=== PATIENT | male | born 1945 | race Hispanic/Latino ===

== ENCOUNTER 2016-12-05 14:56 | Inpatient (IN) | payer MEDICARE ==
[2016-12-05 14:56] VITALS: BMI 24.3
[2016-12-05] MEDS ORDERED: Sodium Chloride 0.9% 1,000 ML IV STA (15:27)
[2016-12-05] MEDS ORDERED: Iohexol 240 (50 ml) PO ONE (15:37)
--- NOTE | 2016-12-05 15:43 | ED PDOC ---
HPI: Abdomen Chief Complaint (Provider): abdominal pain History Per: Patient, Family ( at bedside) Onset/Duration Of Symptoms: Hrs (3-4) Outside of [place] travel?: No Current Symptoms Are (Timing): Still Present Pain Scale Rating Of: 7 Location Of Pain/Discomfort: Epigastric Quality Of Discomfort: "Pain" Associated Symptoms: Vomiting. denies: Fever, Chills, Diarrhea, Back Pain, Chest Pain, Urinary Symptoms Exacerbating Factors: None Alleviating Factors: None Last Bowel Movement: Yesterday (PM, before bed) <Mary Mccollum - Last Filed: 12/05/16 19:05> <Rey Toth III - Last Filed: 12/05/16 19:19> Time Seen by Provider: 12/05/16 15:00 Chief Complaint (Nursing): Abdominal Pain Additional Complaint(s): Rey Zamora is a 71 yo M with PMH HTN, AAA, HLD, gout, s/p lap alicia earlier this month (11/08/16 at [place]), who presented to the ED today, because of 3-4 hrs of epigastric abdominal pain/discomfort. Pt ate breakfast consisting of eggs, a slice of andrew and toast, not a new meal for him since the surgery earlier this month, and started experiencing increased belching, nausea and abdominal discomfort within the hour. He vomited once at home and once right after arriving to the ED by ambulance: vomit was not bloody , was food particles. At present time, pt is complaining of epigastric abdominal pain, rates it 7/10, states it doesn't radiate, has no alleviating/ exacerbating factors, and is unable to characterize the pain other than as "pain." As per his who is at bedside, he is currently followed/being worked up for the AAA by a private provider, Dr. Phyllis Mota. PMD: Dr. Bryant Mota (Mary Mccollum) Past Medical History - Medical History PMH: CVA, HTN, Hypercholesterolemia, Hyperlipidemia, Malignancy (bladder cancer , currently being treated), Seizures Denies: Diabetes, Chronic Kidney Disease - Surgical History Surgical History: Appendectomy, Cholecystectomy - Family History Family History: States: Unknown Family Hx (noncontributory) - Living Arrangements Living Arrangements: With Family - Social History Ex-Smoker (has not smoked in the last 12 months): Yes (smoked 2ppd, quit 15 yrs ago) Drugs: Denies <Mary Mccollum - Last Filed: 12/05/16 19:05> <Rey Toth III - Last Filed: 12/05/16 19:19> Vital Signs: Last Vital Signs Temp 98.1 F 12/05/16 14:57 Pulse 82 12/05/16 14:57 Resp 18 12/05/16 14:57 BP 168/97 H 12/05/16 14:57 Pulse Ox 98 12/05/16 19:05 - Home Medications Home Medications: Ambulatory Orders Medication Instructions Recorded Allopurinol [Zyloprim] 100 mg PO DAILY 01/09/15 Aspirin [Aspirin EC] 81 mg PO DAILY 01/09/15 Folic Acid 400 mcg PO DAILY 01/17/16 Simvastatin 10 mg PO DAILY 01/17/16 amLODIPine [Norvasc] 5 mg PO DAILY 01/17/16 levETIRAcetam [Keppra] 500 mg PO BID #0 tab 01/19/16 Levetiracetam [Keppra] 750 mg PO BID #30 tab 01/21/16 - Allergies Allergies/Adverse Reactions: Allergies Allergy/AdvReac Type Severity Reaction Status Date / Time No Known Allergies Allergy Verified 05/05/15 15:26 Review of Systems ROS Statement: Except As Marked, All Systems Reviewed And Found Negative Gastrointestinal: Positive for: Vomiting, Abdominal Pain <Mary Mccollum - Last Filed: 12/05/16 19:05> Physical Exam - Physical Exam Appears: Positive for: No Acute Distress Head Exam: Positive for: ATRAUMATIC Skin: Positive for: Warm, Dry. Negative for: Rash Eye Exam: Positive for: Normal appearance, EOMI, PERRL. Negative for: Conjunctival injection, Scleral icterus ENT: Negative for: Pharyngeal Erythema, Tonsillar Exudate Neck: Negative for: Painless ROM Cardiovascular/Chest: Positive for: Regular Rate, Rhythm, Murmur Respiratory: Positive for: Normal Breath Sounds. Negative for: Respiratory Distress Gastrointestinal/Abdominal: Positive for: Bowel Sounds (sparse), Soft, Tenderness (epigastric, some RUQ). Negative for: Distended, Guarding Extremity: Negative for: Tenderness, Pedal Edema, Deformity Neurologic/Psych: Positive for: Alert, Oriented <JoehaseebChe alvaresa - Last Filed: 12/05/16 19:05> <Rey Toth III - Last Filed: 12/05/16 19:19> - Physical Exam Comments: pt hard of hearing (ChunMary) - Laboratory Results Result Diagrams: 12/05/16 15:40 12/05/16 14:54 - ECG O2 Sat by Pulse Oximetry: 98 <JoehaseebgiorgioMary - Last Filed: 12/05/16 19:05> - Laboratory Results Result Diagrams: 12/05/16 15:40 12/05/16 14:54 <Rey Toth III - Last Filed: 12/05/16 19:19> Medical Decision Making <Mary Mccollum - Last Filed: 12/05/16 19:05> <Rey Toth III - Last Filed: 12/05/16 19:19> Medical Decision Makin:30 Pt seen, examined, evaluated. Initial plan: -CBC -PT/PTT -CMP -Lipase -EKG -Abd/pelvis, PO and IV contrast -Morphine 2mg -Zofran 4mg -NS 1L Bolus 17:00 -cbc unremarkable -cmp: lipase 2390. mild evelation LFTs: AST 103, ALT 91, elevated alk phos at 214 -LR 1L -CT pending 18:[address] 19:00 report pending Case discussed with Dr. Toth (Mary Mccollum) Attending note- seen and examined w resident. Labs reviewed. +elev lipase s/p cholecystectomy. LR initiated. Pain control continued. Endorse Dr Simon pending CT imaging and admission vs transfer to [place] where surgery took place. PMD not at [facility]. (Rey Toth III) Disposition - Disposition Disposition Time: 19:03 <JoeMary hinds - Last Filed: 12/05/16 19:05> - Patient ED Disposition Is Patient to be Admitted: Transfer of Care Counseled Patient/Family Regarding: Studies Performed, Diagnosis - Disposition Patient Signed Over To: Beto Simon Handoff Comments: pending CT result, admission vs transfer. <Rey Toth III - Last Filed: 12/05/16 19:19> - Clinical Impression Clinical Impression: Abdominal pain, Pancreatitis - Disposition Condition: STABLE Forms: Construct (Kyrgyz)
[2016-12-05] MEDS ORDERED: Iohexol 240 (50 ml) ONE (15:53)
[2016-12-05 16:12] LABS: BASO % 0.2 % (0.0-2.0); EOS % 0.3 % (0.0-4.0); HEMATOCRIT 40.5 % (35.0-51.0); LYMPH # 1.2 K/uL (1.0-4.3); LYMPH % 21.3 % (20.0-40.0); MEAN CELL VOLUME 88.5 fl (80.0-94.0); MEAN CORPUSCULAR HGB CONC 32.8 g/dL (33.0-37.0); MEAN PLATELET VOLUME 7.4 fl (7.2-11.7); MONO # 0.5 K/uL (0.0-0.8); MONO % 8.3 % (0.0-10.0); NEUT # 3.9 K/uL (1.8-7.0); NEUT % 69.9 % (50.0-75.0); NRBC % 0.1 % (0.0-0.0); RED CELL DISTRIBUTION WIDTH 18.1 % (11.5-14.5); WHITE BLOOD COUNT 5.6 K/uL (4.8-10.8)
[2016-12-05 16:38] LABS: BILIRUBIN,TOTAL 0.6 mg/dl (0.2-1.3); CALCIUM 8.8 mg/dL (8.4-10.2); POTASSIUM 3.7 MMOL/L (3.6-5.0); TOTAL PROTEIN 5.9 G/DL (6.3-8.2)
[2016-12-05] MEDS ORDERED: Lactated Ringer's 1,000 ML IV SCH ×3 (17:15→22:00)
[2016-12-05 17:42] LABS: PARTIAL THROMBOPLASTIN TIME 28.5 Seconds (25.6-37.1)
[2016-12-05] MEDS ORDERED: Iodixanol 320 MG/ML 100 ML BOTTLE IV ONE (18:51)
[2016-12-05] MEDS ORDERED: Sodium Chloride 0.9% 50 ML IV ONE (18:51)
--- NOTE | 2016-12-05 19:35 | ED PDOC ---
- Laboratory Results Result Diagrams: 12/05/16 15:40 12/05/16 14:54 <Caprice Weaver - Last Filed: 12/05/16 22:07> - Laboratory Results Result Diagrams: 12/05/16 15:40 12/05/16 14:54 - ECG O2 Sat by Pulse Oximetry: 98 - Critical Care Total Time (In Min): 60 <Beto Simon - Last Filed: 12/06/16 01:20> Medical Decision Making <Caprice Weaver - Last Filed: 12/05/16 22:07> <Beto Simon - Last Filed: 12/06/16 01:20> Medical Decision Makin:00 Patient transferred over to [place] by Dr. Toth pending CT and reevaluation. 20:45 CT Scan A/P with IV Contrast FINDINGS: LIMITATIONS: Mild to moderate streak/motion artifact. LOWER THORAX: Large, eccentric aneurysm of the descending thoracic aorta. This measures up to 7 x 7 cm in size. It contains a large amount of mural thrombus. Best seen on image 17 of series 3, there is a focal, crescent shaped hyperdense area in the mural thrombus anteriorly. There is no evidence of adjacent hemorrhage/moses aneurysm rupture. Very small left pleural effusion. ABDOMEN: LIVER: Fatty infiltration of the liver. Small low density liver lesion, most likely a cyst. GALLBLADDER AND BILE DUCTS: Patient is reportedly post laparoscopic cholecystectomy on 11/21/2016. There is fluid in the cholecystectomy bed, with no evidence of a walled off fluid collection to suggest an abscess or a hematoma. No evidence of significant biliary ductal dilatation. PANCREAS: No CT evidence of acute pancreatitis. SPLEEN: No acute abnormality of the spleen identified. ADRENALS: No acute abnormality of the adrenal glands identified. KIDNEYS AND URETERS: No acute abnormality of the kidneys identified. No evidence of significant hydrouereteronephrosis. STOMACH AND BOWEL: Patient appears to be post ileocecal resection. There is an enterocolic anastomosis in the right lower quadrant. APPENDIX: Appendix is surgically absent PELVIS: BLADDER: No acute abnormality of the bladder identified. REPRODUCTIVE: No acute abnormality of the reproductive organs is seen. ABDOMEN and PELVIS: INTRAPERITONEAL SPACE: Moderate amount of abdominal free fluid. This does not appear dense to suggest hemorrhage. BONES/JOINTS: No acute fractures or other acute bony abnormality noted. SOFT TISSUES: No acute abnormality of the visualized soft tissues is seen. VASCULATURE: Complex infrarenal abdominal aortic aneurysm. This measures up to 6 cm in diameter. It has 2 eccentric components, extending posteriorly. It demonstrates extensive mural thrombus. There are hyperdense areas in the mural thrombus anteriorly, which connect to the enhancing aortic lumen. There is no evidence of aneurysm rupture/periaortic hemorrhage. LYMPH NODES: No evidence of diffuse lymphadenopathy. IMPRESSION: - Large 7 cm aneurysm of the descending thoracic aorta. Large 6 cm aneurysm of the infrarenal abdominal aorta. There are hyperdense areas in the mural thrombus of these aneurysms, findings which can be a sign of impending rupture , i.e., representing intramural hemorrhage (versus mural thrombus calcification) . There is no evidence of rupture/periaortic hemorrhage at this time, however. If prior CTs are available, comparison would be helpful. - Moderate abdominal and pelvic free fluid. - Fluid in the cholecystectomy bed, without evidence of abscess formation. Given the abdominal and pelvic free fluid, a leak at the cystic duct stump is not excluded. - See above for remaining findings. 21:[address] Mota about 20 minutes ago regarding patient, call was just returned and it is Dr. Rodney who is covering for Dr. Mota. Dr. Rodney states that she recalls the patient having a thoracic aneurysm in the past, and will review EMR to see if thoracic aneurysm is new or not. 21:19 Dr. Rodney provided results of a CT Angio Chest Abdomen and Pelvis from 10/29/16 , which at that time showed that the patient had a descending thoracic aortic aneurysm with mural thrombosis and ulcerations, whose measurements were 5.6 x 6.3 cm. Patient also had an infrarenal abdominal aortic aneurysm that measured 6.2 cm. Patient does not meet surgical criterion due to his recent cholecystectomy and recent pancreatitis. Patient will be admitted medically to ICU. Case was discussed with Dr. Mcmahon to admit patient, and Dr. Pugh, to admit patient to ICU. Clinical Impression: Pancreatitis/Aortic Aneurysm 21:[address] Yarbrough, recommended that patient receive a HIDA scan. Scribe Attestation: Documented by Dee Dee Graham, acting as a scribe for Beto Simon MD. Provider Scribe Attestation: All medical record entries made by the Scribe were at my direction and personally dictated by me. I have reviewed the chart and agree that the record accurately reflects my personal performance of the history, physical exam, medical decision making, and the department course for this patient. I have also personally directed, reviewed, and agree with the discharge instructions and disposition. (Beto Simon) Disposition <Caprice Weaver - Last Filed: 12/05/16 22:07> Discussed With DrRobby: Timoteo Mcmahon (and Dr. Pugh) - POA Present On Arrival: None - Disposition Disposition: Admitted as In-Patient Disposition Time: 21:19 <Beto Simon - Last Filed: 12/06/16 01:20> - Clinical Impression Clinical Impression: Pancreatitis, Aortic aneurysm - Disposition Condition: GUARDED
--- NOTE | 2016-12-05 20:08 | CT ---
EXAM: CT Abdomen and Pelvis With Intravenous Contrast EXAM DATE/TIME: 12/05/2016 3:37 PM CLINICAL HISTORY: 71 years old, male; Pain; Abdominal pain; Localized; Upper; Prior surgery; Surgery date: <1 month; Surgery type: Lap alicia 11-08-2016; Patient HX: Aaa; Additional info: Upper abd pain, vomiting, HX cholecystectomy 11/21 TECHNIQUE: Axial computed tomography images of the abdomen and pelvis with intravenous contrast. All CT scans at this facility use one or more dose reduction techniques, viz.: automated exposure control; ma/kV adjustment per patient size (including targeted exams where dose is matched to indication; i.e. head); or iterative reconstruction technique. Coronal and sagittal reformatted images were created and reviewed. CONTRAST: 90 mL of VISIPAQUE 320 administered intravenously. COMPARISON: No relevant prior studies available. FINDINGS: LIMITATIONS: Mild to moderate streak/motion artifact. LOWER THORAX: Large, eccentric aneurysm of the descending thoracic aorta. This measures up to 7 x 7 cm in size. It contains a large amount of mural thrombus. Best seen on image 17 of series 3, there is a focal, crescent shaped hyperdense area in the mural thrombus anteriorly. There is no evidence of adjacent hemorrhage/moses aneurysm rupture. Very small left pleural effusion. ABDOMEN: LIVER: Fatty infiltration of the liver. Small low density liver lesion, most likely a cyst. GALLBLADDER AND BILE DUCTS: Patient is reportedly post laparoscopic cholecystectomy on 11/21/2016. There is fluid in the cholecystectomy bed, with no evidence of a walled off fluid collection to suggest an abscess or a hematoma. No evidence of significant biliary ductal dilatation. PANCREAS: No CT evidence of acute pancreatitis. SPLEEN: No acute abnormality of the spleen identified. ADRENALS: No acute abnormality of the adrenal glands identified. KIDNEYS AND URETERS: No acute abnormality of the kidneys identified. No evidence of significant hydrouereteronephrosis. STOMACH AND BOWEL: Patient appears to be post ileocecal resection. There is an enterocolic anastomosis in the right lower quadrant. APPENDIX: Appendix is surgically absent PELVIS: BLADDER: No acute abnormality of the bladder identified. REPRODUCTIVE: No acute abnormality of the reproductive organs is seen. ABDOMEN and PELVIS: INTRAPERITONEAL SPACE: Moderate amount of abdominal free fluid. This does not appear dense to suggest hemorrhage. BONES/JOINTS: No acute fractures or other acute bony abnormality noted. SOFT TISSUES: No acute abnormality of the visualized soft tissues is seen. VASCULATURE: Complex infrarenal abdominal aortic aneurysm. This measures up to 6 cm in diameter. It has 2 eccentric components, extending posteriorly. It demonstrates extensive mural thrombus. There are hyperdense areas in the mural thrombus anteriorly, which connect to the enhancing aortic lumen. There is no evidence of aneurysm rupture/periaortic hemorrhage. LYMPH NODES: No evidence of diffuse lymphadenopathy. IMPRESSION: - Large 7 cm aneurysm of the descending thoracic aorta. Large 6 cm aneurysm of the infrarenal abdominal aorta. There are hyperdense areas in the mural thrombus of these aneurysms, findings which can be a sign of impending rupture, i.e., representing intramural hemorrhage (versus mural thrombus calcification). There is no evidence of rupture/periaortic hemorrhage at this time, however. If prior CTs are available, comparison would be helpful. - Moderate abdominal and pelvic free fluid. - Fluid in the cholecystectomy bed, without evidence of abscess formation. Given the abdominal and pelvic free fluid, a leak at the cystic duct stump is not excluded. - See above for remaining findings.
--- NOTE | 2016-12-05 22:31 | CP.PCM.CON ---
History of Present Illness - History of Present Illness History of Present Illness: CC/Reason for ICU: Pancreatitis, 2 large abd aneurysms HPI: This is a 71 y/o male with MHx significant for HTN, HLD, AAA (2), and gout who comes in with abd pain and nausea. Of note patient had his GB removed 11/08. He was at home and weak but otherwise improving. Today he had breakfast, then around noon he developed pain in the abdomen as well as nausea and recurrent belching. EMS was called and as patient was being transported to hospital, he had an episode of nb/nb vomiting. Currently patient has no abd pain after receiving pain medications. As for when he had the pain, nothing made it better or worse. It did not radiate anywhere. No f/c. ROS: 14 systems reviewed, negative other than HPI MHx: HTN, HLD, AAA, and gout SHx: cholecystectomy Allergies: NKDA Medications: As per med rec, but patient not taking Keppra or any other anti seizure medications Family Hx: Reviewed, no significant findings Social Hx: Lives with family, no tobacco, no EtOH currently Surrogate Dec Mkr: , contact info in chart Past Patient History - Infectious Disease Hx of Infectious Diseases: None - Past Medical History & Family History Past Medical History?: Yes - Past Social History Drugs: Denies - CARDIAC Hx Hypercholesterolemia: Yes Hx Hypertension: Yes - PULMONARY Hx Respiratory Disorders: No - NEUROLOGICAL Hx Seizures: Yes - HEENT Hx HEENT Problems: Yes (hard of hearing) - RENAL Hx Chronic Kidney Disease: No - ENDOCRINE/METABOLIC Hx Endocrine Disorders: No - HEMATOLOGICAL/ONCOLOGICAL Hx Blood Disorders: No - INTEGUMENTARY Hx Dermatological Problems: No - MUSCULOSKELETAL/RHEUMATOLOGICAL Hx Musculoskeletal Disorders: Yes Hx Falls: Yes Hx Gout: Yes - GASTROINTESTINAL Hx Gastrointestinal Disorders: No - GENITOURINARY/GYNECOLOGICAL Hx Genitourinary Disorders: No - PSYCHIATRIC Hx Psychophysiologic Disorder: No Hx Substance Use: No - SURGICAL HISTORY Hx Appendectomy: Yes Hx Cholecystectomy: Yes - ANESTHESIA Hx Anesthesia: Yes Hx Anesthesia Reactions: No Hx Malignant Hyperthermia: No Meds Allergies/Adverse Reactions: Allergies Allergy/AdvReac Type Severity Reaction Status Date / Time No Known Allergies Allergy Verified 05/05/15 15:26 - Medications Medications: Current Medications Allopurinol (Zyloprim) 100 mg PO DAILY [facility] Amlodipine Besylate (Norvasc) 5 mg PO DAILY [facility] Aspirin (Ecotrin) 81 mg PO DAILY [facility] Folic Acid (Folic Acid) 1 mg PO DAILY [facility] Lactated Ringer's (Lactated Ringer's) 1,000 mls @ 1,000 mls/hr IV .Q1H [facility] Lactated Ringer's (Lactated Ringer's) 1,000 mls @ 150 mls/hr IV .Q6H40M [facility] Last Admin: 12/05/16 19:29 Dose: 150 mls/hr Lactated Ringer's (Lactated Ringer's) 1,000 mls @ 100 mls/hr IV .Q10H [facility] Stop: 12/06/16 17:59 Levetiracetam (Keppra) 500 mg PO BID [facility] Morphine Sulfate (Morphine) 1 mg IVP Q4 PRN PRN Reason: Pain, Mild (1-3) Morphine Sulfate (Morphine) 2 mg IVP Q4 PRN PRN Reason: Pain, moderate (4-7) Ondansetron HCl (Zofran Inj) 4 mg IVP Q6 PRN PRN Reason: Nausea/Vomiting Pravastatin Sodium (Pravachol) 20 mg PO DAILY [facility] Physical Exam - Constitutional Appears: No Acute Distress - Head Exam Head Exam: ATRAUMATIC, NORMOCEPHALIC - Eye Exam Eye Exam: EOMI, PERRL - ENT Exam ENT Exam: Mucous Membranes Moist - Neck Exam Neck exam: Positive for: Full Rom - Respiratory Exam Respiratory Exam: Clear to Auscultation Bilateral, NORMAL BREATHING PATTERN - Cardiovascular Exam Cardiovascular Exam: REGULAR RHYTHM, +S1, +S2 - GI/Abdominal Exam GI & Abdominal Exam: Normal Bowel Sounds, Pulsatile Mass, Soft - Extremities Exam Extremities exam: Positive for: full ROM, normal inspection - Neurological Exam Neurological exam: Alert, CN II-XII Intact, Oriented x3 - Psychiatric Exam Psychiatric exam: Normal Affect, Normal Mood - Skin Skin Exam: Dry, Warm Results - Vital Signs Recent Vital Signs: Last Vital Signs Temp 98.7 F 12/05/16 22:03 Pulse 90 12/05/16 22:03 Resp 17 12/05/16 22:03 BP 138/80 12/05/16 22:03 Pulse Ox 98 12/05/16 22:16 - Labs Result Diagrams: 12/05/16 15:40 12/05/16 14:54 - Imaging and Cardiology CT scan - abdomen Status: Image reviewed by me (Pancreas w/o signs of pancreatitis; 7 cm thoracic an, 6 cm infrarenal an), Report reviewed by me Assessment & Plan (1) Pancreatitis Assessment and Plan: 71 y/o male with multiple medical conditions who in with pancreatitis in setting of recent gb removal. Also with 2 large Aortic Aneurysms for which he is being watched closely. -NPO, IVF -Pain mgmt per scale, Zofran for nausea IV -Repeat lipase in AM -GI consult in AM -Possibly HIDA scan in AM -Continue home BP, HLD medications -DVT PPx with SCDs for now Status: Acute (2) Aortic aneurysm Status: Acute (3) Dyslipidemia Status: Chronic Priority: High (4) Gout Status: Chronic (5) HTN (hypertension) Status: Acute (6) DVT prophylaxis Status: Acute
[2016-12-06 06:58] LABS: HEMATOCRIT 45.4 % (35.0-51.0); MEAN CELL VOLUME 88.3 fl (80.0-94.0); MEAN CORPUSCULAR HGB CONC 32.8 g/dL (33.0-37.0); RED CELL DISTRIBUTION WIDTH 18.5 % (11.5-14.5); WHITE BLOOD COUNT 11.7 K/uL (4.8-10.8)
[2016-12-06 07:14] LABS: BLOOD UREA NITROGEN 19 mg/dl (9-20); CALCIUM 8.5 mg/dL (8.4-10.2); CARBON DIOXIDE 18 mmol/L (22-30); CHLORIDE 106 mmol/L (98-107); GFR AFRICAN-AMERICAN > 60; GLUCOSE,RANDOM 103 mg/dL (75-110); LIPASE 669 U/L (23-300); SODIUM 135 mmol/l (132-148)
--- NOTE | 2016-12-06 07:36 | CP.PCM.HP ---
<Omega Medina - Last Filed: 12/06/16 12:01> History of Present Illness - History of Present Illness History of Present Illness: Patient seen and examined bedside with attending. 71 year old male with significant PMH of HTN, HLD, AAA x 2. TAA x 1, and gout who comes in with abdominal pain, nausea and vomiting, admitted for acute pancreatitis. He is s/p laproscopic cholecystectomy 11/08/2016 at [place]. Patient had abdominal pain yesterday with associated nausea and emesis, nbnb. Pain is midepigastric, and controlled with current medications. He has a vascular surgeon over in [place]. Surgery was scheduled to repair AAA in November 20 after cholecystectomy but was pushed back to December due to weakness , as per pts . She endorses history of heavy smoking 2 packs per day for many years. Patient was a heavy drinker in the past as well. His current medications were reviewed with his who has them bedside. ROS: A 12pt ROS was obtained and was negative except as above PMH: as above Surgical hx: s/p lap cholecystectomy 11/08/2016 at [facility], appendectomy about 9 years back Social Hx: as per patients , former smoker, 2 PPD for many years, heavy alcohol drinker with scotch, for many years last drink was months ago Present on Admission - Present on Admission Any Indicators Present on Admission: No Past Patient History - Infectious Disease Hx of Infectious Diseases: None - Past Medical History & Family History Past Medical History?: Yes - Past Social History Smoking Status: Former Smoker - CARDIAC Hx Hypercholesterolemia: Yes Hx Hypertension: Yes - PULMONARY Hx Respiratory Disorders: No - NEUROLOGICAL Hx Seizures: Yes - HEENT Hx HEENT Problems: Yes (hard of hearing) - RENAL Hx Chronic Kidney Disease: No - ENDOCRINE/METABOLIC Hx Endocrine Disorders: No - HEMATOLOGICAL/ONCOLOGICAL Hx Blood Disorders: No Hx AIDS: No Hx Human Immunodeficiency Virus (HIV): No - INTEGUMENTARY Hx Dermatological Problems: No - MUSCULOSKELETAL/RHEUMATOLOGICAL Hx Musculoskeletal Disorders: Yes Hx Falls: No Hx Gout: Yes - GASTROINTESTINAL Hx Gastrointestinal Disorders: No - GENITOURINARY/GYNECOLOGICAL Hx Genitourinary Disorders: No - PSYCHIATRIC Hx Psychophysiologic Disorder: No Hx Substance Use: No - SURGICAL HISTORY Hx Appendectomy: Yes Hx Cholecystectomy: Yes - ANESTHESIA Hx Anesthesia: Yes Hx Anesthesia Reactions: No Hx Malignant Hyperthermia: No Meds Allergies/Adverse Reactions: Allergies Allergy/AdvReac Type Severity Reaction Status Date / Time No Known Allergies Allergy Verified 05/05/15 15:26 Physical Exam - Constitutional Additional comments: lying in bed, no distress noted - Head Exam Head Exam: NORMAL INSPECTION - Eye Exam Eye Exam: Normal appearance - ENT Exam ENT Exam: Mucous Membranes Dry - Respiratory Exam Respiratory Exam: Decreased Breath Sounds, NORMAL BREATHING PATTERN. absent: Rhonchi, Wheezes - Cardiovascular Exam Cardiovascular Exam: Tachycardia (HR 90s, sinus rhythm), REGULAR RHYTHM, +S1, + S2 - GI/Abdominal Exam GI & Abdominal Exam: Diminished Bowel Sounds, Soft, Tenderness (midepigastric) - Rectal Exam Rectal Exam: Deferred - Neurological Exam Neurological exam: CN II-XII Intact Additional comments: sleeping but arousable - Psychiatric Exam Psychiatric exam: Normal Affect, Normal Mood - Skin Skin Exam: Dry, Intact, Normal Color, Warm Results - Vital Signs Recent Vital Signs: Last Vital Signs Temp 98.9 F 12/06/16 04:00 Pulse 101 H 12/06/16 06:00 Resp 22 12/06/16 06:00 BP 129/80 12/06/16 06:00 Pulse Ox 99 12/06/16 06:00 - Labs Result Diagrams: 12/06/16 06:15 12/06/16 06:15 Labs: Laboratory Results - last 24 hr 12/06/16 12/06/16 06:15 06:15 WBC 11.7 H D RBC 5.14 Hgb 14.9 Hct 45.4 MCV 88.3 MCH 29.0 MCHC 32.8 L RDW 18.5 H Plt Count 143 Sodium 135 Potassium 4.0 Chloride 106 Carbon Dioxide 18 L Anion Gap 15 BUN 19 Creatinine 1.2 Est GFR ( Amer) > 60 Est GFR (Non-Af Amer) 59 Random Glucose 103 Calcium 8.5 Lipase 669 H Assessment & Plan - Assessment and Plan (Free Text) Assessment: 71 year old male that presented with abdominal pain, nausea and vomiting, admitted for acute pancreatitis. Has hx of AAA and TAA. Sees vascular at [place]. #. Acute pancreatitis with transaminitis -s/p cholecystectomy -?retained stone vs biliary leak -NPO, IVF, antiemetics and pain control -CT reviewed: There is fluid in the cholecystectomy bed no evidence of hematoma or abcess. No evidence of significant biliary ductal dilatation. -GI consult, Dr. Hinson, recommendations appreciated. -Pending HIDA scan #. Thoracic and Abdominal Aortic Aneurysm -ct reviewed: 7 cm thoracic aneurysm, 6cm aortic aneurysm -close BP control, statin -lopressor ordered -pt has vascular surgeon at [place] #. Gout -hold allopurinol given NPO status. #.DVT ppx scds <Mcmahon,Timoteo K - Last Filed: 12/12/16 13:58> Results - Vital Signs Recent Vital Signs: Last Vital Signs Temp 98.2 F 12/06/16 12:00 Pulse 91 H 12/06/16 12:31 Resp 22 12/06/16 12:00 BP 111/68 12/06/16 12:31 Pulse Ox 98 12/06/16 12:00 - Labs Result Diagrams: 12/06/16 06:15 12/06/16 06:15 Assessment & Plan - Assessment and Plan (Free Text) Assessment: Patient was personally seen and examined by me in rounds with residents. Available labs and diagnostic data reviewed. Case, Patient's condition and management plan Discussed with residents in rounds. Agree with resident's progress note. Plan: As ordered.
[2016-12-06 08:06] VITALS: TEMP 98.2
[2016-12-06] MEDS ORDERED: Pravastatin Sodium 20 MG TAB PO SCH (09:00)
--- NOTE | 2016-12-06 10:37 | CP.CCUPN ---
CCU Subjective - Physician Review Subjective (Free Text): awaked and alert, still has abdominals pain and relieved with morphine prn. No emesis, dizziness, chest pain, nor fever spikes. ROS: as above PMSFH: All Nursing and physician documentation reviewed to date; no new pertinent info noted relevant to current medical problems. MAJOR PROBLEMS: 1. Acute Pancreatitis ( recent Natalie) 2. H/o TAA, and AAA 3. Accelerated HTN 4. h/o Seizures PLAN: 1. Resolving Lipase levels noted, abd pain controlled with narcotics, 2. Maintain aggressive IVF hydration, no clinical evidence of fluid overload. 3. Control BP better, add BBs and vasodilator, e.g. Hydralazine; discussed with PMD. 4. For HIDA scan today. 5. Discussed with GI: consideration for transfer to [facility] for definitive GI intervention and aneurysm repair surgery. CCU Objective - Vital Signs / Intake & Output Vital Signs (Last 4 hours): Vital Signs Temp Pulse Resp BP Pulse Ox 12/06/16 08:05 98.2 F 12/06/16 06:00 101 H 22 129/80 99 Intake and Output (Last 8hrs): Intake & Output 12/05/16 12/06/16 12/06/16 22:59 06:59 14:59 Intake Total 1425 Output Total 475 Balance 950 Intake: IV 1425 Output: Urine 475 Urine, Voided 475 - Physical Exam Head: Positive for: Normocephalic Pupils: Positive for: PERRL Extroacular Muscles: Positive for: EOMI Conjunctiva: Positive for: Normal. Negative for: Injected, Icteric Mouth: Positive for: Moist Mucous Membranes Neck: Positive for: Normal Range of Motion. Negative for: JVD, Bruit Respiratory/Chest: Positive for: Clear to Auscultation. Negative for: Accessory Muscle Use Cardiovascular: Positive for: Regular Rate and Rhythm. Negative for: Murmurs, Rub Abdomen: Positive for: Tenderness, Normal Bowel Sounds, Other (+bruit). Negative for: Distention Lower Extremity: Positive for: NORMAL PULSES. Negative for: CALF TENDERNESS, Cyanosis Neurological: Positive for: GCS=15, CN II-XII Intact Skin: Positive for: Warm. Negative for: Rashes Psychiatric: Positive for: Alert, Oriented x 3 - Medications Active Medications: Active Medications Generic Name Dose Route Start Last Admin Trade Name Freq PRN Reason Stop Dose Admin Allopurinol 100 mg 12/06/16 09:00 Zyloprim PO DAILY [facility] Amlodipine Besylate 5 mg 12/06/16 09:00 Norvasc PO DAILY [facility] Aspirin 81 mg 12/06/16 09:00 Ecotrin PO DAILY [facility] Folic Acid 1 mg 12/06/16 09:00 Folic Acid PO DAILY [facility] Lactated Ringer's 1,000 mls @ 1,000 mls/hr 12/05/16 17:15 Lactated Ringer's IV .Q1H [facility] Lactated Ringer's 1,000 mls @ 150 mls/hr 12/05/16 19:30 12/05/16 19:29 Lactated Ringer's IV 150 mls/hr .Q6H40M [facility] Administration Lactated Ringer's 1,000 mls @ 100 mls/hr 12/05/16 22:00 Lactated Ringer's IV 12/06/16 17:59 .Q10H [facility] Morphine Sulfate 1 mg 12/05/16 21:56 Morphine IVP Q4 PRN Pain, Mild (1-3) Morphine Sulfate 2 mg 12/05/16 21:56 12/06/16 06:24 Morphine IVP 2 mg Q4 PRN Administration Pain, moderate (4-7) Ondansetron HCl 4 mg 12/05/16 21:55 Zofran Inj IVP Q6 PRN Nausea/Vomiting Pravastatin Sodium 20 mg 12/06/16 09:00 Pravachol PO DAILY [facility] - Patient Studies Lab Studies: Lab Studies 12/06/16 12/06/16 Range/Units 06:15 06:15 WBC 11.7 H D (4.8-10.8) K/uL RBC 5.14 (4.40-5.90) Mil/uL Hgb 14.9 (12.0-18.0) g/dL Hct 45.4 (35.0-51.0) % MCV 88.3 (80.0-94.0) fl MCH 29.0 (27.0-31.0) pg MCHC 32.8 L (33.0-37.0) g/dL RDW 18.5 H (11.5-14.5) % Plt Count 143 (130-400) K/uL Sodium 135 (132-148) mmol/l Potassium 4.0 (3.6-5.0) MMOL/L Chloride 106 (98-107) mmol/L Carbon Dioxide 18 L (22-30) mmol/L Anion Gap 15 (10-20) BUN 19 (9-20) mg/dl Creatinine 1.2 (0.8-1.5) mg/dL Est GFR ( Amer) > 60 Est GFR (Non-Af Amer) 59 Random Glucose 103 (75-110) mg/dL Calcium 8.5 (8.4-10.2) mg/dL Lipase 669 H (23-300) U/L Laboratory Results - last 24 hr 12/06/16 12/06/16 06:15 06:15 WBC 11.7 H D RBC 5.14 Hgb 14.9 Hct 45.4 MCV 88.3 MCH 29.0 MCHC 32.8 L RDW 18.5 H Plt Count 143 Sodium 135 Potassium 4.0 Chloride 106 Carbon Dioxide 18 L Anion Gap 15 BUN 19 Creatinine 1.2 Est GFR ( Amer) > 60 Est GFR (Non-Af Amer) 59 Random Glucose 103 Calcium 8.5 Lipase 669 H Review of Systems - Review of Systems All systems: reviewed and no additional remarkable complaints except (as above) Critical Care Progress Note - Nutrition Nutrition: Nutrition Category Date Time Status NPO Diet [DIET] Diets 12/05/16 Breakfast Active
--- NOTE | 2016-12-06 10:57 | CP.PCM.CON ---
Addendum entered and electronically signed by Barbie Spencer DO 12/06/16 13:59: HIDA scan not working. Ordered MRCP and recommend surgical consult. Original Note: <Barbie Spencer - Last Filed: 12/06/16 11:13> History of Present Illness - History of Present Illness History of Present Illness: GI Fellow PGY4 Consult Note This is a 71yM with a pmhx significant for HTN, HLD, AAA (2), and gout who comes in with abdominal pain, nausea and vomiting. Pt is s/p laproscopic cholecystectomy 11/08/2016 at [facility] with no post-op complications per at bedside. Pt has been home and doing well but yesterday had acute onset of abdominal pain, belching associated with nausea and subsequent nonbloody emesis. Pt reports that the pain was midepigastric, nonradiating and is better controlled with IV pain medications. Pt denies any prior hx of pancreatitis and does report a heavy alcohol use hx but last drink was 3 months ago. ER attending had called last night to discuss case and admission for acute pancreatitis, there was concern for biliary leak per CT scan so a HIDA scan was ordered. At this time pt looks comfortable, afebrile with stable vitals. ROS: A 12pt ROS was obtained and was negative except as above PmHx: As stated in the HPI PsHx: s/p lap cholecystectomy 11/08/2016 at [facility] FHx: Reviewed, no significant findings SHx: No tobacco, per pt is a heavy alcohol drinker with scotch daily for many years but last drink was 3months ago Past Patient History - Infectious Disease Hx of Infectious Diseases: None - Past Medical History & Family History Past Medical History?: Yes - Past Social History Smoking Status: Former Smoker - CARDIAC Hx Hypercholesterolemia: Yes Hx Hypertension: Yes - PULMONARY Hx Respiratory Disorders: No - NEUROLOGICAL Hx Seizures: Yes - HEENT Hx HEENT Problems: Yes (hard of hearing) - RENAL Hx Chronic Kidney Disease: No - ENDOCRINE/METABOLIC Hx Endocrine Disorders: No - HEMATOLOGICAL/ONCOLOGICAL Hx Blood Disorders: No Hx AIDS: No Hx Human Immunodeficiency Virus (HIV): No - INTEGUMENTARY Hx Dermatological Problems: No - MUSCULOSKELETAL/RHEUMATOLOGICAL Hx Musculoskeletal Disorders: Yes Hx Falls: No Hx Gout: Yes - GASTROINTESTINAL Hx Gastrointestinal Disorders: No - GENITOURINARY/GYNECOLOGICAL Hx Genitourinary Disorders: No - PSYCHIATRIC Hx Psychophysiologic Disorder: No Hx Substance Use: No - SURGICAL HISTORY Hx Appendectomy: Yes Hx Cholecystectomy: Yes - ANESTHESIA Hx Anesthesia: Yes Hx Anesthesia Reactions: No Hx Malignant Hyperthermia: No Meds Allergies/Adverse Reactions: Allergies Allergy/AdvReac Type Severity Reaction Status Date / Time No Known Allergies Allergy Verified 05/05/15 15:26 - Medications Medications: Current Medications Allopurinol (Zyloprim) 100 mg PO DAILY [facility] Amlodipine Besylate (Norvasc) 5 mg PO DAILY [facility] Aspirin (Ecotrin) 81 mg PO DAILY [facility] Folic Acid (Folic Acid) 1 mg PO DAILY [facility] Lactated Ringer's (Lactated Ringer's) 1,000 mls @ 1,000 mls/hr IV .Q1H [facility] Lactated Ringer's (Lactated Ringer's) 1,000 mls @ 150 mls/hr IV .Q6H40M [facility] Last Admin: 12/05/16 19:29 Dose: 150 mls/hr Lactated Ringer's (Lactated Ringer's) 1,000 mls @ 100 mls/hr IV .Q10H [facility] Stop: 12/06/16 17:59 Morphine Sulfate (Morphine) 1 mg IVP Q4 PRN PRN Reason: Pain, Mild (1-3) Morphine Sulfate (Morphine) 2 mg IVP Q4 PRN PRN Reason: Pain, moderate (4-7) Last Admin: 12/06/16 06:24 Dose: 2 mg Ondansetron HCl (Zofran Inj) 4 mg IVP Q6 PRN PRN Reason: Nausea/Vomiting Pravastatin Sodium (Pravachol) 20 mg PO DAILY [facility] Physical Exam - Constitutional Appears: Non-toxic, No Acute Distress, Older Than Stated Age - Head Exam Head Exam: ATRAUMATIC, NORMAL INSPECTION, NORMOCEPHALIC - Eye Exam Eye Exam: EOMI, Normal appearance Pupil Exam: PERRL - ENT Exam ENT Exam: Mucous Membranes Dry - Neck Exam Neck exam: Positive for: Normal Inspection - Respiratory Exam Respiratory Exam: Decreased Breath Sounds, NORMAL BREATHING PATTERN - Cardiovascular Exam Cardiovascular Exam: RRR, +S1, +S2 - GI/Abdominal Exam GI & Abdominal Exam: Normal Bowel Sounds, Soft. absent: Distended, Guarding, Organomegaly, Rebound, Rigid, Tenderness Additional comments: surgical scars - Rectal Exam Rectal Exam: Deferred - Extremities Exam Extremities exam: Positive for: full ROM, normal inspection - Back Exam Back exam: NORMAL INSPECTION - Neurological Exam Neurological exam: Alert, Oriented x3 - Psychiatric Exam Psychiatric exam: Normal Affect, Normal Mood - Skin Skin Exam: Dry, Intact, Normal Color, Warm Results - Vital Signs Recent Vital Signs: Last Vital Signs Temp 98.2 F 12/06/16 08:05 Pulse 101 H 12/06/16 06:00 Resp 12/06/16 06:00 BP 129/80 12/06/16 06:00 Pulse Ox 99 12/06/16 06:00 - Labs Result Diagrams: 12/06/16 06:15 12/06/16 06:15 Labs: Laboratory Results - last 24 hr 12/06/16 12/06/16 06:15 06:15 WBC 11.7 H D RBC 5.14 Hgb 14.9 Hct 45.4 MCV 88.3 MCH 29.0 MCHC 32.8 L RDW 18.5 H Plt Count 143 Sodium 135 Potassium 4.0 Chloride 106 Carbon Dioxide 18 L Anion Gap 15 BUN 19 Creatinine 1.2 Est GFR ( Amer) > 60 Est GFR (Non-Af Amer) 59 Random Glucose 103 Calcium 8.5 Lipase 669 H Assessment & Plan - Assessment and Plan (Free Text) Assessment: This is a 71yM pw abdominal pain, nausea and vomiting. 1. Pancreatitis likely s/p cholecystectomy 2. Transaminitis 3. r/o Biliary Leak 4. AAA Plan: -Continue IVF hydration with LR at 150cc/hr -BUN/HCT improving, continue to monitor -Order LFTs today and TB level -Continue pain medication, anti-emetics, and keep NPO -HIDA scan pending -If HIDA scan positive for biliary leak, pt will need to be transferred to [facility] for any interventional GI procedures like ERCP/stent placement -Case discussed with primary and ICU team <Enedelia Hinson MD - Last Filed: 12/06/16 19:52> Results - Vital Signs Recent Vital Signs: Last Vital Signs Temp 98.2 F 12/06/16 12:00 Pulse 91 H 12/06/16 12:31 Resp 22 12/06/16 12:00 BP 111/68 12/06/16 12:31 Pulse Ox 98 12/06/16 12:00 - Labs Result Diagrams: 12/06/16 06:15 12/06/16 06:15 Labs: Laboratory Results - last 24 hr 12/06/16 12/06/16 06:15 06:15 WBC 11.7 H D RBC 5.14 Hgb 14.9 Hct 45.4 MCV 88.3 MCH 29.0 MCHC 32.8 L RDW 18.5 H Plt Count 143 Sodium 135 Potassium 4.0 Chloride 106 Carbon Dioxide 18 L Anion Gap 15 BUN 19 Creatinine 1.2 Est GFR ( Amer) > 60 Est GFR (Non-Af Amer) 59 Random Glucose 103 Calcium 8.5 Total Bilirubin 0.8 Direct Bilirubin 0.5 H AST 90 H ALT 92 H Alkaline Phosphatase 223 H Total Protein 6.0 L Albumin 2.9 L Globulin 3.0 Albumin/Globulin Ratio 1.0 Lipase 669 H Attending/Attestation - Attestation I have personally seen and examined this patient.: Yes I have fully participated in the care of the patient.: Yes I have reviewed all pertinent clinical information: Yes Notes (Text): 12/06/16 19:49 Patient seen in MICU. at bedside. This is a 71 yr old M presented to ER with abdominal pain, nausea and vomiting with Ct concerning for fluid around GB fossa s/p laproscopic CCY one month ago at [place]. Concern for bile leak. TB is normal. Continue IVF and proceed with HIDA scan. Get surgical consult. If HIDA scan positive for biliary leak, pt will need ERCP/stent placement -Case discussed with primary and ICU team
[2016-12-06] MEDS ORDERED: Metoprolol 1 mg/ml Inj IVP PRN (11:20)
[2016-12-06 11:32] LABS: ALKALINE PHOSPHATASE 223 U/L (38-126); ALT/SGPT 92 U/L (21-72); AST/SGOT 90 U/L (17-59); BILIRUBIN,TOTAL 0.8 mg/dl (0.2-1.3)
[2016-12-06 12:24] VITALS: BP 111/68; RESP 22; O2SAT 98
[2016-12-06 12:32] VITALS: PULSE 91
--- NOTE | 2016-12-06 12:53 | CARD ---
APPROVED REPORT EKG Measurement Heart [id number] <Conclusion> Sinus rhythm with 1st degree AV block Otherwise normal ECG
== END 2016-12-06 14:50 | disposition left against medical advice (07) | DRG 440 ==
LOC: H.ER 14:56 → H.ERHOLD 21:01 → H.ICU/CCU 12-06 00:30
PROVIDERS: ADMIT Internal Medicine; ATTEND Internal Medicine
DX: K85.90 Acute pancreatitis without necrosis or infection, unspecified (principal); I71.2 Thoracic aortic aneurysm, without rupture; C67.9 Malignant neoplasm of bladder, unspecified; I10 Essential (primary) hypertension; I71.4 Abdominal aortic aneurysm, without rupture; E78.5 Hyperlipidemia, unspecified; Z86.73 Personal history of transient ischemic attack (TIA), and cerebral infarction without residual deficits; Z79.82 Long term (current) use of aspirin; Z79.899 Other long term (current) drug therapy; M10.9 Gout, unspecified; H91.90 Unspecified hearing loss, unspecified ear; Z87.891 Personal history of nicotine dependence; Z90.49 Acquired absence of other specified parts of digestive tract; R74.0 Nonspecific elevation of levels of transaminase and lactic acid dehydrogenase [LDH]